=== PATIENT | female | born 2005 ===

== ENCOUNTER → 2025-09-11 12:51 | Outpatient (BNVA) | payer OTHER, SELFPAY | PROVIDERS: Visit Provider Nurse Practitioner Women's Health | DX: N91.2 Amenorrhea, unspecified (principal); O20.0 Threatened abortion; Z3A.01 Less than 8 weeks gestation of pregnancy | CPT/HCPCS: 81000; 81025; 84702; 85025; 86850; 86900; 87086; 87491; 87591; 87661 ==

== ENCOUNTER → 2025-09-14 10:24 | Outpatient (BNVA) | payer OTHER, SELFPAY | PROVIDERS: Visit Provider Nurse Practitioner Women's Health | DX: O02.1 Missed abortion (principal); Z3A.08 8 weeks gestation of pregnancy | CPT/HCPCS: 84702; 85025 ==

== ENCOUNTER → 2025-09-17 12:52 | Outpatient (BNVA) | payer OTHER, SELFPAY | PROVIDERS: Visit Provider Nurse Practitioner Women's Health | DX: Z01.89 Encounter for other specified special examinations (principal); O03.4 Incomplete spontaneous abortion without complication | CPT/HCPCS: 84702 ==

== ENCOUNTER → 2025-10-01 15:01 | Outpatient (BNVA) | payer OTHER, SELFPAY | PROVIDERS: Visit Provider Nurse Practitioner Women's Health | DX: R42 Dizziness and giddiness (principal); O03.4 Incomplete spontaneous abortion without complication; R53.83 Other fatigue | CPT/HCPCS: 82728; 83540; 84702; 85025 ==